=== PATIENT | male | born 1925 | race Asian ===

== ENCOUNTER 2016-06-08 22:28 | Inpatient (IN) | payer MEDICARE ==
[~2016-06-08] VITALS: Ht 167.6 cm; Wt 61.6 kg
[~2016-06-08 22:28] MED LIST: ALBU8HFA IH; ASPI-825 PO; CALC-613 PO; CHOL100034 PO; DOCU250C28 PO; FURO40TA5 PO; HEPA100I3 IV; HYDR-4173 PO; LABE200T PO; LEVO25TA9 PO; LORA0.5T83 PO; MIRT15 PO; NIFE90TA38 PO; NITR0.4T27 SL; OMEP20CA10 PO; QUET200T29 PO; SODI325T PO; ZOLP5 PO
[2016-06-08] MEDS ORDERED: IPRATROPIUM BROMIDE 0.5 MG/2.5 ML NEB SOLUTION NEB ONE (22:45)
[2016-06-08] MEDS ORDERED: OxyCODONE HCL/ACETAMINOPHEN 5-325 MG TABLET PO PRN (22:45)
[2016-06-08] MEDS ORDERED: ALBUTEROL SULFATE 2.5 MG/0.5 ML NEB SOLUTION NEB PRN (22:45)
[2016-06-08] MEDS ORDERED: ONDANSETRON HCL 4 MG/2 ML VIAL IVP PRN (22:45)
[2016-06-08] MEDS ORDERED: ALBUTEROL SULFATE 5 MG/ML 20 ML NEB SOLN [BULK] NEB ONE (22:45)
[2016-06-08] MEDS ORDERED: ACETAMINOPHEN 325 MG TABLET PO PRN (22:45)
[2016-06-08] MEDS ORDERED: ZOLPIDEM TARTRATE 5 MG TABLET PO PRN (22:45)
[2016-06-08] MEDS ORDERED: MAGNESIUM HYDROXIDE SUSPENSION 30 ML UDCUP PO PRN (22:45)
[2016-06-08] MEDS ORDERED: BISACODYL 10 MG RECTAL RECTAL SUPPOSITORY PR PRN (22:45)
[2016-06-08 22:55] LABS: HEMATOCRIT 23.5 % (41-53); HEMOGLOBIN 7.9 g/dL (13.5-17.5); MEAN CORPUSCULAR HEMOGLOBIN 32.7 pg (26.0-34.0); MEAN CORPUSCULAR HGB CONC 33.8 G/dL (31.0-37.0); MEAN CORPUSCULAR VOLUME 97 fL (80-100); PLATELET COUNT (AUTO) 290 K/uL (150-450); RED BLOOD CELL COUNT(AUTO) 2.43 MIL/uL (4.50-5.90); RED CELL DISTRIBUTION WIDTH 13.9 % (11.5-14.5); WHITE BLOOD COUNT (AUTO) 11.8 K/uL (4.5-11.0)
[2016-06-08 23:16] LABS: CREATININE 7.36 mg/dL (0.60-1.30)
[2016-06-08 23:17] LABS: BAND NEUTROPHILS % (MANUAL) 11 % (1-5); LYMPHOCYTES % (MANUAL) 10 % (22-44); RBC MORPHOLOGY COMMENT NORMAL RBC MORPH; TOTAL CELLS COUNTED 100
[2016-06-08 23:41] LABS: ALBUMIN 3.2 g/dL (3.4-5.0); BILIRUBIN,TOTAL 0.3 mg/dL (0.1-1.0); CREATINE KINASE MB 8.4 ng/mL (0-5); TOTAL PROTEIN, SERUM 7.3 g/dL (6.4-8.2)
[2016-06-08] MEDS: HEPARIN SODIUM,PORCINE 5,000 UNITS/ML VIAL SQ SCH (23:45)
[2016-06-08 23:51] LABS: INFLUENZA TYPE B NEGATIVE FOR TYPE B (NEGATIVE)
[2016-06-09] MEDS ORDERED: OSELTAMIVIR PHOSPHATE 75 MG CAPSULE PO ONE (00:15)
[2016-06-09] MEDS ORDERED: 0.9% SODIUM CHLORIDE 5 ML NEB SOLUTION NEB ONE ×3 (02:01→21:11)
[2016-06-09 02:12] LABS: APPEARANCE,URINE CLEAR (CLEAR); GLUCOSE, URINE (UA) NEGATIVE (NEGATIVE); KETONES,URINE NEGATIVE (NEGATIVE); LEUKOCYTE ESTERASE ,URINE NEGATIVE (NEGATIVE); OCCULT BLOOD,URINE TRACE (NEGATIVE); PH,URINE 5.5 (5.0-8.0); PROTEIN,URINE SEE CONFIRM (NEGATIVE)
[2016-06-09 02:15] LABS: ADD UA MICROSCOPIC YES
[2016-06-09 02:28] LABS: SULFOSALICYLIC ACID,URINE 1+ (Negative)
[2016-06-09 02:29] LABS: RBC,URINE None Seen /HPF (0-2); SQUAMOUS EPITHELIAL CELL,UR Rare /LPF (None Seen); WBC,URINE None Seen /HPF (0-5)
[2016-06-09] MEDS: ALBUTEROL SULFATE 2.5 MG/0.5 ML NEB SOLUTION NEB SCH ×4 (02:50→21:12)
[2016-06-09 05:23] LABS: BASOPHILS % (AUTO) 0.4 % (0.0-2.0); EOSINOPHILS % (AUTO) 0.1 % (1.0-6.0); HEMATOCRIT 25.2 % (41-53); HEMOGLOBIN 8.2 g/dL (13.5-17.5); LYMPHOCYTES # (AUTO) 1.4 K/uL (1.0-4.8); LYMPHOCYTES % (AUTO) 13.7 % (22.0-44.0); MEAN CORPUSCULAR HGB CONC 32.4 G/dL (31.0-37.0); MEAN CORPUSCULAR VOLUME 99 fL (80-100); MONOCYTES # (AUTO) 1.6 K/uL (0.1-1.0); MONOCYTES % (AUTO) 16.1 % (2.0-9.0); NEUTROPHILS # (AUTO) 7.1 K/uL (1.8-7.7); NEUTROPHILS % (AUTO) 69.7 % (40.0-70.0); PLATELET COUNT (AUTO) 270 K/uL (150-450); RED BLOOD CELL COUNT(AUTO) 2.55 MIL/uL (4.50-5.90); RED CELL DISTRIBUTION WIDTH 14.6 % (11.5-14.5); WHITE BLOOD COUNT (AUTO) 10.2 K/uL (4.5-11.0)
[2016-06-09 05:52] LABS: ALBUMIN 3.2 g/dL (3.4-5.0); BILIRUBIN,TOTAL 0.2 mg/dL (0.1-1.0); CREATININE 7.37 mg/dL (0.60-1.30); POTASSIUM 4.4 mmol/L (3.5-5.1); TOTAL PROTEIN, SERUM 7.1 g/dL (6.4-8.2)
[2016-06-09] MEDS ORDERED: LEVOTHYROXINE SODIUM 25 MCG TABLET PO SCH (06:30)
[2016-06-09 07:36] LABS: GLUCOSE,POINT OF CARE 84 MG/DL (70-110)
[2016-06-09] MEDS: PANTOPRAZOLE SODIUM 40 MG DR TABLET PO SCH (08:07)
[2016-06-09] MEDS: FUROSEMIDE 40 MG/4 ML VIAL IVP SCH ×2 (08:07→22:15)
[2016-06-09] MEDS: ASPIRIN 81 MG CHEWABLE TABLET PO SCH (08:07)
[2016-06-09] MEDS: HEPARIN SODIUM,PORCINE 5,000 UNITS/ML VIAL SQ SCH ×3 (09:50→23:37)
[2016-06-09] MEDS ORDERED: HEPA500017 SQ (14:36)
[2016-06-09] MEDS: CALCIUM ACETATE 667 MG CAPSULE PO SCH ×3 (16:34→17:09)
[2016-06-09] MEDS: CHOLECALCIFEROL (VIT D3) 1,000 UNITS TABLET PO SCH (16:34)
[2016-06-09 16:53] LABS: BASOPHILS % (AUTO) 0.1 % (0.0-2.0); EOSINOPHILS % (AUTO) 0.1 % (1.0-6.0); HEMATOCRIT 27.3 % (41-53); HEMOGLOBIN 8.9 g/dL (13.5-17.5); LYMPHOCYTES # (AUTO) 2.1 K/uL (1.0-4.8); LYMPHOCYTES % (AUTO) 15.1 % (22.0-44.0); MEAN CORPUSCULAR HGB CONC 32.6 G/dL (31.0-37.0); MEAN CORPUSCULAR VOLUME 98 fL (80-100); MONOCYTES # (AUTO) 1.7 K/uL (0.1-1.0); MONOCYTES % (AUTO) 12.4 % (2.0-9.0); NEUTROPHILS % (AUTO) 72.3 % (40.0-70.0); PLATELET COUNT (AUTO) 304 K/uL (150-450); RED BLOOD CELL COUNT(AUTO) 2.78 MIL/uL (4.50-5.90); RED CELL DISTRIBUTION WIDTH 14.7 % (11.5-14.5); WHITE BLOOD COUNT (AUTO) 13.8 K/uL (4.5-11.0)
[2016-06-09 17:07] LABS: CREATININE 7.38 mg/dL (0.60-1.30); POTASSIUM 4.9 mmol/L (3.5-5.1)
[2016-06-09 17:32] LABS: ALBUMIN 3.4 g/dL (3.4-5.0); BILIRUBIN,TOTAL 0.3 mg/dL (0.1-1.0); CREATINE KINASE MB 14.4 ng/mL (0-5); TOTAL PROTEIN, SERUM 7.8 g/dL (6.4-8.2)
[2016-06-09 18:49] LABS: ABG A-A DIFF O2 128.4 mmHg (10-20.0); ABG HCO3 13.4 mmol/L (22.0-26.0); ABG OXYHEMOGLOBIN 83.9 % (94.0-100.0); ABG PCO2 34 mmHg (35-45); TEMPERATURE, FAHRENHEIT, BG 98.3 FAHREN (96.0-98.6)
[2016-06-09 18:50] LABS: ABG PH 7.204 (7.35-7.450); ALLEN TEST, BLOOD GAS Positive
[2016-06-09] MEDS ORDERED: RAPID SEQUENCE KIT [RSI] 1 EACH KIT ONE ×2 (18:55)
[2016-06-09] MEDS ORDERED: SUCCINYLCHOLINE CHLORIDE 20 MG/ML 10 ML VIAL ONE (18:56)
[2016-06-09] MEDS ORDERED: LORazepam 2 MG/ML VIAL IVP ONE ×2 (19:00→21:30)
[2016-06-09] MEDS ORDERED: ONDANSETRON HCL 4 MG/2 ML VIAL IVP ONE (19:00)
[2016-06-09] MEDS ORDERED: NITROGLYCERIN 2% (1 GM=INCH) PACKET TP ONE (19:00)
[2016-06-09] MEDS ORDERED: AZITHROMYCIN 500 MG/NS 250 ML IV ONE (19:30)
[2016-06-09] MEDS ORDERED: CefTRIAXone 1 GM/DEXTROSE 50 ML IV ONE (19:30)
[2016-06-09] MEDS ORDERED: BUMETANIDE 0.25 MG/ML 10 ML VIAL IVP ONE (19:30)
[2016-06-09 21:02] LABS: ABG A-A DIFF O2 147.5 mmHg (10-20.0); ABG BASE EXCESS -15.1 mmol/L (-2.0-3.0); ABG HCO3 13.6 mmol/L (22.0-26.0); ABG OXYHEMOGLOBIN 92.9 % (94.0-100.0); ABG PCO2 23 mmHg (35-45); ABG PH 7.312 (7.35-7.450); TEMPERATURE, FAHRENHEIT, BG 98.3 FAHREN (96.0-98.6)
[2016-06-09 21:03] LABS: ALLEN TEST, BLOOD GAS Positive; IPAP, BG 10 cm H2O
[2016-06-09 22:06] VITALS: BP 135/97
[2016-06-10] VITALS (14 sets, daily range): BP systolic 107–154; BP diastolic 55–90
[2016-06-10] MEDS ORDERED: 0.9% SODIUM CHLORIDE 5 ML NEB SOLUTION NEB ONE ×3 (01:34→19:28)
[2016-06-10] MEDS: ALBUTEROL SULFATE 2.5 MG/0.5 ML NEB SOLUTION NEB SCH ×4 (01:38→19:35)
[2016-06-10] MEDS ORDERED: PNEUMOCOCCAL VACCINE POLYVALENT 0.5 ML VIAL [PPSV23] IM ONE (05:45)
[2016-06-10] MEDS ORDERED: -PHARMACY VACCINE NOTE- MISC ONE ×2 (05:45)
[2016-06-10] MEDS: LEVOTHYROXINE SODIUM 50 MCG TABLET PO SCH (06:30)
[2016-06-10 07:02] LABS: BASOPHILS # (AUTO) 0.01 K/uL (0.00-0.20); BASOPHILS % (AUTO) 0.1 % (0.0-2.0); EOSINOPHILS % (AUTO) 0.02 % (1.0-6.0); HEMATOCRIT 24.7 % (41-53); HEMOGLOBIN 8.1 g/dL (13.5-17.5); LYMPHOCYTES # (AUTO) 1.7 K/uL (1.0-4.8); LYMPHOCYTES % (AUTO) 14.6 % (22.0-44.0); MEAN CORPUSCULAR HEMOGLOBIN 32.2 pg (26.0-34.0); MEAN CORPUSCULAR HGB CONC 32.8 G/dL (31.0-37.0); MEAN CORPUSCULAR VOLUME 98 fL (80-100); MONOCYTES # (AUTO) 1.3 K/uL (0.1-1.0); MONOCYTES % (AUTO) 11.4 % (2.0-9.0); NEUTROPHILS # (AUTO) 8.5 K/uL (1.8-7.7); PLATELET COUNT (AUTO) 263 K/uL (150-450); RED BLOOD CELL COUNT(AUTO) 2.52 MIL/uL (4.50-5.90); RED CELL DISTRIBUTION WIDTH 14.6 % (11.5-14.5); WHITE BLOOD COUNT (AUTO) 11.5 K/uL (4.5-11.0)
[2016-06-10 07:25] LABS: ALBUMIN 3.1 g/dL (3.4-5.0); BILIRUBIN,TOTAL 0.3 mg/dL (0.1-1.0); CALCIUM, TOTAL 7.7 mg/dL (8.8-10.5); CREATININE 8.41 mg/dL (0.60-1.30); MAGNESIUM 2.3 mg/dL (1.80-2.40); PHOSPHORUS 8.6 mg/dL (2.5-4.9); POTASSIUM 5.1 mmol/L (3.5-5.1); TOTAL PROTEIN, SERUM 7.1 g/dL (6.4-8.2)
[2016-06-10] MEDS: EPOETIN ALFA 10,000 UNITS/ML VIAL SQ SCH (07:59)
[2016-06-10] MEDS: CALCIUM ACETATE 667 MG CAPSULE PO SCH ×3 (08:00→18:00)
[2016-06-10] MEDS: HEPARIN SODIUM,PORCINE 5,000 UNITS/ML VIAL SQ SCH ×2 (08:01→21:22)
[2016-06-10] MEDS: FUROSEMIDE 40 MG/4 ML VIAL IVP SCH ×2 (08:02→21:23)
[2016-06-10] MEDS: CHOLECALCIFEROL (VIT D3) 1,000 UNITS TABLET PO SCH (09:00)
[2016-06-10] MEDS: PANTOPRAZOLE SODIUM 40 MG DR TABLET PO SCH (09:00)
[2016-06-10] MEDS: ASPIRIN 81 MG CHEWABLE TABLET PO SCH (09:00)
[2016-06-10 10:57] LABS: INR 1.3 (0.9-1.1); PROTHROMBIN TIME 13.2 SEC (9.4-11.6)
[2016-06-10] MEDS ORDERED: AMIODARONE HCL 150 MG in DEXTROSE 5%-WATER 97 ML IV ONE (11:00)
[2016-06-10] MEDS ORDERED: AMIODARONE HCL 360 MG in DEXTROSE 5%-WATER 242.8 ML IV ONE (11:00)
[2016-06-10] MEDS: OSELTAMIVIR PHOSPHATE 75 MG CAPSULE PO SCH ×2 (11:56→21:22)
[2016-06-10] MEDS ORDERED: HEPARIN SODIUM,PORCINE 1,000 UNITS/ML VIAL IVP ONE (12:00)
[2016-06-10] MEDS ORDERED: 0.9% SODIUM CHLORIDE 10 ML SYRINGE IVP PRN (12:00)
[2016-06-10] MEDS ORDERED: MANNITOL 25%-12.5 GM/50 ML VIAL IVP ONE (12:00)
[2016-06-10] MEDS ORDERED: MIDAZOLAM HCL 2 MG/2 ML VIAL ONE (13:49)
[2016-06-10] MEDS ORDERED: FentaNYL CITRATE-PF 100 MCG/2 ML VIAL ONE (13:49)
[2016-06-10] MEDS ORDERED: HEPARIN SODIUM 1000 UNITS/NS 500 ML ONE (13:50)
[2016-06-10] MEDS ORDERED: HEPARIN SODIUM,PORCINE 1,000 UNITS/ML 10 ML VIAL ONE (13:50)
[2016-06-10] MEDS ORDERED: LIDOCAINE HCL 1%/EPI 1:200,000/PF 10 ML VIAL ONE (13:50)
[2016-06-10] MEDS ORDERED: MIDAZOLAM HCL 2 MG/2 ML VIAL IVP ONE (14:45)
[2016-06-10] MEDS ORDERED: FentaNYL CITRATE-PF 100 MCG/2 ML VIAL IVP ONE (14:50)
[2016-06-10] MEDS ORDERED: AMIODARONE HCL 540 MG in DEXTROSE 5%-WATER 239.2 ML IV ONE (17:00)
[2016-06-10] MEDS ORDERED: SODIUM CHLORIDE 0.9% 250 ML IV ONE (19:06)
[2016-06-10] MEDS ORDERED: SODIUM CHLORIDE 0.9% 100 ML ONE (21:15)
[2016-06-10] MEDS: AZITHROMYCIN 500 MG/NS 250 ML IV SCH (21:23)
[2016-06-11 00:06] VITALS: BP 124/98
[2016-06-11] MEDS ORDERED: 0.9% SODIUM CHLORIDE 5 ML NEB SOLUTION NEB ONE ×4 (02:18→19:38)
[2016-06-11] MEDS: ALBUTEROL SULFATE 2.5 MG/0.5 ML NEB SOLUTION NEB SCH ×4 (02:22→19:54)
[2016-06-11 04:34] VITALS: BP 115/77
[2016-06-11] MEDS: LEVOTHYROXINE SODIUM 50 MCG TABLET PO SCH (06:35)
[2016-06-11 07:37] LABS: BASOPHILS % (AUTO) 0.4 % (0.0-2.0); EOSINOPHILS % (AUTO) 0.4 % (1.0-6.0); HEMATOCRIT 29.1 % (41-53); HEMOGLOBIN 9.8 g/dL (13.5-17.5); LYMPHOCYTES # (AUTO) 1.8 K/uL (1.0-4.8); LYMPHOCYTES % (AUTO) 18.3 % (22.0-44.0); MEAN CORPUSCULAR HEMOGLOBIN 32.3 pg (26.0-34.0); MEAN CORPUSCULAR HGB CONC 33.5 G/dL (31.0-37.0); MEAN CORPUSCULAR VOLUME 96 fL (80-100); MONOCYTES # (AUTO) 1.6 K/uL (0.1-1.0); MONOCYTES % (AUTO) 16.4 % (2.0-9.0); NEUTROPHILS # (AUTO) 6.5 K/uL (1.8-7.7); NEUTROPHILS % (AUTO) 64.5 % (40.0-70.0); PLATELET COUNT (AUTO) 205 K/uL (150-450); RED BLOOD CELL COUNT(AUTO) 3.02 MIL/uL (4.50-5.90); RED CELL DISTRIBUTION WIDTH 14.1 % (11.5-14.5)
[2016-06-11 07:42] VITALS: BP 141/69
[2016-06-11 08:03] LABS: CALCIUM, TOTAL 7.7 mg/dL (8.8-10.5); CREATININE 6.76 mg/dL (0.60-1.30); MAGNESIUM 1.9 mg/dL (1.80-2.40); PHOSPHORUS 6.3 mg/dL (2.5-4.9); POTASSIUM 4.2 mmol/L (3.5-5.1); TOTAL PROTEIN, SERUM 6.8 g/dL (6.4-8.2)
[2016-06-11] MEDS: OSELTAMIVIR PHOSPHATE 75 MG CAPSULE PO SCH ×2 (08:40→20:35)
[2016-06-11] MEDS: FUROSEMIDE 40 MG/4 ML VIAL IVP SCH ×2 (08:40→20:35)
[2016-06-11] MEDS: PANTOPRAZOLE SODIUM 40 MG DR TABLET PO SCH (08:40)
[2016-06-11] MEDS: HEPARIN SODIUM,PORCINE 5,000 UNITS/ML VIAL SQ SCH ×2 (08:40→20:35)
[2016-06-11] MEDS: ASPIRIN 81 MG CHEWABLE TABLET PO SCH (08:40)
[2016-06-11] MEDS: CALCIUM ACETATE 667 MG CAPSULE PO SCH ×3 (08:40→18:10)
[2016-06-11] MEDS: CHOLECALCIFEROL (VIT D3) 1,000 UNITS TABLET PO SCH (08:41)
[2016-06-11] MEDS ORDERED: AMIODARONE HCL 750 MG in DEXTROSE 5%-WATER 485 ML IV SCH (11:00)
[2016-06-11 11:10] VITALS: BP 120/82
[2016-06-11] MEDS ORDERED: SODIUM CHLORIDE 0.9% 2,000 ML IV ONE (12:06)
[2016-06-11 15:36] VITALS: BP 139/55
[2016-06-11] MEDS ORDERED: HEPARIN SODIUM,PORCINE 1,000 UNITS/ML VIAL IVP ONE ×2 (16:48→16:50)
[2016-06-11] MEDS: VITAMIN B COMP/VIT C/FOLIC ACID CAPSULE PO SCH (17:01)
[2016-06-11 19:52] VITALS: BP 128/76
[2016-06-11] MEDS: AMIODARONE HCL 200 MG TABLET PO SCH (20:35)
[2016-06-11] MEDS: AZITHROMYCIN 500 MG/NS 250 ML IV SCH (21:41)
[2016-06-12 00:09] VITALS: BP 136/89
[2016-06-12] MEDS ORDERED: 0.9% SODIUM CHLORIDE 5 ML NEB SOLUTION NEB ONE ×4 (02:13→20:26)
[2016-06-12] MEDS: ALBUTEROL SULFATE 2.5 MG/0.5 ML NEB SOLUTION NEB SCH ×4 (02:18→20:32)
[2016-06-12 04:23] VITALS: BP 141/68
[2016-06-12 06:42] LABS: BASOPHILS # (AUTO) 0.02 K/uL (0.00-0.20); BASOPHILS % (AUTO) 0.1 % (0.0-2.0); EOSINOPHILS # (AUTO) 0.21 K/uL (0.00-0.70); EOSINOPHILS % (AUTO) 1.92 % (1.0-6.0); HEMATOCRIT 34.8 % (41-53); HEMOGLOBIN 11.6 g/dL (13.5-17.5); LYMPHOCYTES # (AUTO) 2.2 K/uL (1.0-4.8); LYMPHOCYTES % (AUTO) 20.1 % (22.0-44.0); MEAN CORPUSCULAR HEMOGLOBIN 32.3 pg (26.0-34.0); MEAN CORPUSCULAR HGB CONC 33.2 G/dL (31.0-37.0); MEAN CORPUSCULAR VOLUME 97 fL (80-100); MONOCYTES # (AUTO) 1.4 K/uL (0.1-1.0); MONOCYTES % (AUTO) 12.7 % (2.0-9.0); NEUTROPHILS # (AUTO) 7.2 K/uL (1.8-7.7); NEUTROPHILS % (AUTO) 65.1 % (40.0-70.0); PLATELET COUNT (AUTO) 172 K/uL (150-450); RED BLOOD CELL COUNT(AUTO) 3.59 MIL/uL (4.50-5.90); RED CELL DISTRIBUTION WIDTH 14.9 % (11.5-14.5)
[2016-06-12] MEDS: LEVOTHYROXINE SODIUM 50 MCG TABLET PO SCH (06:48)
[2016-06-12 07:21] LABS: BILIRUBIN,TOTAL 0.8 mg/dL (0.1-1.0); CALCIUM, TOTAL 8.6 mg/dL (8.8-10.5); CREATININE 5.42 mg/dL (0.60-1.30); POTASSIUM 4.1 mmol/L (3.5-5.1)
[2016-06-12 07:49] VITALS: BP 132/67
[2016-06-12] MEDS: CALCIUM ACETATE 667 MG CAPSULE PO SCH ×3 (10:20→18:00)
[2016-06-12] MEDS: HEPARIN SODIUM,PORCINE 5,000 UNITS/ML VIAL SQ SCH ×2 (10:21→20:07)
[2016-06-12] MEDS: FUROSEMIDE 40 MG/4 ML VIAL IVP SCH ×2 (10:21→20:07)
[2016-06-12] MEDS: EPOETIN ALFA 10,000 UNITS/ML VIAL SQ SCH (10:21)
[2016-06-12] MEDS: PANTOPRAZOLE SODIUM 40 MG DR TABLET PO SCH (10:21)
[2016-06-12] MEDS: OSELTAMIVIR PHOSPHATE 75 MG CAPSULE PO SCH ×2 (10:21→20:07)
[2016-06-12] MEDS: CHOLECALCIFEROL (VIT D3) 1,000 UNITS TABLET PO SCH (10:22)
[2016-06-12] MEDS: ASPIRIN 81 MG CHEWABLE TABLET PO SCH (10:22)
[2016-06-12] MEDS: VITAMIN B COMP/VIT C/FOLIC ACID CAPSULE PO SCH (10:22)
[2016-06-12] MEDS: AMIODARONE HCL 200 MG TABLET PO SCH ×2 (10:22→20:07)
[2016-06-12 11:10] VITALS: BP 116/65
[2016-06-12 16:06] VITALS: BP 131/98
[2016-06-12 19:59] VITALS: BP 134/71
[2016-06-12] MEDS: AZITHROMYCIN 500 MG/NS 250 ML IV SCH (20:17)
[2016-06-13] VITALS (7 sets, daily range): BP systolic 106–148; BP diastolic 70–80
[2016-06-13] MEDS ORDERED: 0.9% SODIUM CHLORIDE 5 ML NEB SOLUTION NEB ONE ×4 (02:25→19:29)
[2016-06-13] MEDS: ALBUTEROL SULFATE 2.5 MG/0.5 ML NEB SOLUTION NEB SCH ×4 (02:33→20:02)
[2016-06-13] MEDS: LEVOTHYROXINE SODIUM 50 MCG TABLET PO SCH (06:08)
[2016-06-13 08:07] LABS: CREATININE 7.03 mg/dL (0.60-1.30); MAGNESIUM 1.9 mg/dL (1.80-2.40); PHOSPHORUS 4.7 mg/dL (2.5-4.9)
[2016-06-13 08:11] LABS: ALBUMIN 3.2 g/dL (3.4-5.0); BILIRUBIN,TOTAL 0.8 mg/dL (0.1-1.0); CALCIUM, TOTAL 8.8 mg/dL (8.8-10.5); POTASSIUM 3.8 mmol/L (3.5-5.1); TOTAL PROTEIN, SERUM 7.6 g/dL (6.4-8.2)
[2016-06-13] MEDS: HEPARIN SODIUM,PORCINE 5,000 UNITS/ML VIAL SQ SCH ×2 (08:35→20:32)
[2016-06-13] MEDS: AMIODARONE HCL 200 MG TABLET PO SCH ×2 (08:36→20:33)
[2016-06-13] MEDS: CALCIUM ACETATE 667 MG CAPSULE PO SCH ×3 (08:36→18:16)
[2016-06-13] MEDS: OSELTAMIVIR PHOSPHATE 75 MG CAPSULE PO SCH ×2 (08:36→20:33)
[2016-06-13] MEDS: FUROSEMIDE 40 MG/4 ML VIAL IVP SCH ×2 (08:36→20:32)
[2016-06-13] MEDS: ASPIRIN 81 MG CHEWABLE TABLET PO SCH (08:36)
[2016-06-13] MEDS: PANTOPRAZOLE SODIUM 40 MG DR TABLET PO SCH (08:36)
[2016-06-13] MEDS: CHOLECALCIFEROL (VIT D3) 1,000 UNITS TABLET PO SCH (08:36)
[2016-06-13] MEDS: VITAMIN B COMP/VIT C/FOLIC ACID CAPSULE PO SCH (08:36)
[2016-06-13 09:47] LABS: BASOPHILS # (AUTO) 0.06 K/uL (0.00-0.20); BASOPHILS % (AUTO) 0.4 % (0.0-2.0); EOSINOPHILS # (AUTO) 0.32 K/uL (0.00-0.70); EOSINOPHILS % (AUTO) 2.18 % (1.0-6.0); HEMATOCRIT 32.1 % (41-53); HEMOGLOBIN 10.9 g/dL (13.5-17.5); LYMPHOCYTES # (AUTO) 2.5 K/uL (1.0-4.8); MEAN CORPUSCULAR HEMOGLOBIN 32.5 pg (26.0-34.0); MEAN CORPUSCULAR VOLUME 95 fL (80-100); MONOCYTES % (AUTO) 13.4 % (2.0-9.0); NEUTROPHILS # (AUTO) 9.9 K/uL (1.8-7.7); PLATELET COUNT (AUTO) 177 K/uL (150-450); RED BLOOD CELL COUNT(AUTO) 3.36 MIL/uL (4.50-5.90); RED CELL DISTRIBUTION WIDTH 14.6 % (11.5-14.5); WHITE BLOOD COUNT (AUTO) 14.8 K/uL (4.5-11.0)
[2016-06-13 10:00] LABS: RBC MORPHOLOGY COMMENT ABNORMAL RBC MORPH
[2016-06-13] MEDS: GuaiFENesin/D-METHORPHAN [SUGAR-FREE] 200-20MG/10 ML SYRUP UDCUP PO PRN (12:12)
[2016-06-13] MEDS ORDERED: SODIUM CHLORIDE 0.9% 2,000 ML IV ONE (13:17)
[2016-06-13] MEDS ORDERED: HEPARIN SODIUM,PORCINE 1,000 UNITS/ML VIAL IVP ONE ×3 (13:30→19:14)
[2016-06-13] MEDS ORDERED: MANNITOL 25%-12.5 GM/50 ML VIAL IVP PRN (13:30)
[2016-06-13] MEDS ORDERED: ALBUMIN HUMAN 25%-12.5GM/50ML IV BOTTLE IV PRN (13:30)
[2016-06-13] MEDS: AZITHROMYCIN 500 MG/NS 250 ML IV SCH (20:32)
[2016-06-14] MEDS ORDERED: 0.9% SODIUM CHLORIDE 5 ML NEB SOLUTION NEB ONE ×4 (02:17→19:45)
[2016-06-14] MEDS: ALBUTEROL SULFATE 2.5 MG/0.5 ML NEB SOLUTION NEB SCH ×4 (02:29→20:10)
[2016-06-14 04:45] VITALS: BP 141/80
[2016-06-14] MEDS: LEVOTHYROXINE SODIUM 50 MCG TABLET PO SCH (06:03)
[2016-06-14 07:32] VITALS: BP 118/74
[2016-06-14] MEDS: CALCIUM ACETATE 667 MG CAPSULE PO SCH ×4 (08:00→18:04)
[2016-06-14] MEDS: HEPARIN SODIUM,PORCINE 5,000 UNITS/ML VIAL SQ SCH ×3 (09:00→21:37)
[2016-06-14] MEDS: FUROSEMIDE 40 MG/4 ML VIAL IVP SCH ×2 (09:24→21:38)
[2016-06-14] MEDS: AMIODARONE HCL 200 MG TABLET PO SCH ×2 (09:25→21:37)
[2016-06-14] MEDS: VITAMIN B COMP/VIT C/FOLIC ACID CAPSULE PO SCH (09:25)
[2016-06-14] MEDS: OSELTAMIVIR PHOSPHATE 75 MG CAPSULE PO SCH ×2 (09:25→21:37)
[2016-06-14] MEDS: CHOLECALCIFEROL (VIT D3) 1,000 UNITS TABLET PO SCH (09:25)
[2016-06-14] MEDS: ASPIRIN 81 MG CHEWABLE TABLET PO SCH (09:25)
[2016-06-14] MEDS: GuaiFENesin/D-METHORPHAN [SUGAR-FREE] 200-20MG/10 ML SYRUP UDCUP PO PRN (09:25)
[2016-06-14] MEDS: EPOETIN ALFA 10,000 UNITS/ML VIAL SQ SCH (09:27)
[2016-06-14 11:12] VITALS: BP 144/89
[2016-06-14] MEDS ORDERED: SODIUM CHLORIDE 0.9% 10 ML ONE (11:36)
[2016-06-14 15:17] VITALS: BP 155/93
[2016-06-14] MEDS ORDERED: QUET200T PO (18:54)
[2016-06-14] MEDS ORDERED: MIRT15 PO (18:54)
[2016-06-14 20:30] VITALS: BP 130/75
[2016-06-14] MEDS: AZITHROMYCIN 500 MG/NS 250 ML IV SCH (21:38)
[2016-06-15] VITALS (8 sets, daily range): BP systolic 99–138; BP diastolic 57–88
[2016-06-15] MEDS ORDERED: 0.9% SODIUM CHLORIDE 5 ML NEB SOLUTION NEB ONE ×4 (02:41→19:34)
[2016-06-15] MEDS: ALBUTEROL SULFATE 2.5 MG/0.5 ML NEB SOLUTION NEB SCH ×4 (03:11→19:50)
[2016-06-15] MEDS: LEVOTHYROXINE SODIUM 50 MCG TABLET PO SCH (06:46)
[2016-06-15] MEDS ORDERED: SODIUM CHLORIDE 0.9% 1,000 ML IV ONE (08:15)
[2016-06-15] MEDS: HEPARIN SODIUM,PORCINE 5,000 UNITS/ML VIAL SQ SCH ×2 (09:40→20:55)
[2016-06-15] MEDS: CALCIUM ACETATE 667 MG CAPSULE PO SCH ×3 (09:40→18:15)
[2016-06-15] MEDS: FUROSEMIDE 40 MG/4 ML VIAL IVP SCH ×2 (11:13→19:59)
[2016-06-15] MEDS: AMIODARONE HCL 200 MG TABLET PO SCH ×2 (12:10→20:55)
[2016-06-15] MEDS: ASPIRIN 81 MG CHEWABLE TABLET PO SCH (12:10)
[2016-06-15] MEDS: CHOLECALCIFEROL (VIT D3) 1,000 UNITS TABLET PO SCH (12:10)
[2016-06-15] MEDS: OSELTAMIVIR PHOSPHATE 75 MG CAPSULE PO SCH (12:10)
[2016-06-15] MEDS: ATORVASTATIN CALCIUM 20 MG TABLET PO SCH (12:10)
[2016-06-15] MEDS: VITAMIN B COMP/VIT C/FOLIC ACID CAPSULE PO SCH (12:10)
[2016-06-15] MEDS: ISOSORB DINIT/HYDRALAZINE HCL 20-37.5 MG TABLET PO SCH ×2 (12:11→20:55)
[2016-06-15] MEDS ORDERED: SODIUM CHLORIDE 0.9% 250 ML IV ONE (19:50)
[2016-06-15] MEDS: AZITHROMYCIN 500 MG/NS 250 ML IV SCH (19:59)
[2016-06-16] MEDS ORDERED: HEPARIN SODIUM,PORCINE 1,000 UNITS/ML 10 ML VIAL IVP ONE (00:05)
[2016-06-16] MEDS ORDERED: PROPOFOL 1% 20 ML VIAL IVP ONE (00:05)
[2016-06-16] MEDS ORDERED: LIDOCAINE HCL/PF 2% 5 ML VIAL IM ONE (00:05)
[2016-06-16] MEDS ORDERED: MIDAZOLAM HCL 2 MG/2 ML VIAL IVP ONE (00:05)
[2016-06-16] MEDS ORDERED: CefoTEtan DISODIUM 1 GM/VIAL IVP ONE (00:05)
[2016-06-16] MEDS ORDERED: KETAMINE HCL 50 MG/ML 10 ML VIAL IVP ONE (00:05)
[2016-06-16] MEDS ORDERED: FentaNYL CITRATE-PF 100 MCG/2 ML VIAL IVP ONE (00:05)
[2016-06-16] MEDS ORDERED: 0.9% SODIUM CHLORIDE 5 ML NEB SOLUTION NEB ONE ×4 (02:15→19:50)
[2016-06-16] MEDS: ALBUTEROL SULFATE 2.5 MG/0.5 ML NEB SOLUTION NEB SCH ×4 (02:25→19:58)
[2016-06-16 04:00] VITALS: BP 112/63
[2016-06-16] MEDS: LEVOTHYROXINE SODIUM 50 MCG TABLET PO SCH (05:14)
[2016-06-16 06:43] LABS: INR 1.2 (0.9-1.1); PROTHROMBIN TIME 12.7 SEC (9.4-11.6)
[2016-06-16 06:54] LABS: ALBUMIN 3.2 g/dL (3.4-5.0); BILIRUBIN,TOTAL 0.7 mg/dL (0.1-1.0); CALCIUM, TOTAL 8.8 mg/dL (8.8-10.5); CREATININE 6.82 mg/dL (0.60-1.30); MAGNESIUM 2.1 mg/dL (1.80-2.40); POTASSIUM 4.1 mmol/L (3.5-5.1); TOTAL PROTEIN, SERUM 7.5 g/dL (6.4-8.2)
[2016-06-16 06:56] LABS: BASOPHILS # (AUTO) 0.08 K/uL (0.00-0.20); BASOPHILS % (AUTO) 0.5 % (0.0-2.0); EOSINOPHILS # (AUTO) 0.46 K/uL (0.00-0.70); EOSINOPHILS % (AUTO) 2.88 % (1.0-6.0); HEMATOCRIT 34.3 % (41-53); HEMOGLOBIN 11.4 g/dL (13.5-17.5); LYMPHOCYTES # (AUTO) 2.8 K/uL (1.0-4.8); LYMPHOCYTES % (AUTO) 17.5 % (22.0-44.0); MEAN CORPUSCULAR HEMOGLOBIN 32.8 pg (26.0-34.0); MEAN CORPUSCULAR HGB CONC 33.3 G/dL (31.0-37.0); MEAN CORPUSCULAR VOLUME 98 fL (80-100); MONOCYTES # (AUTO) 2.2 K/uL (0.1-1.0); MONOCYTES % (AUTO) 13.6 % (2.0-9.0); NEUTROPHILS # (AUTO) 10.4 K/uL (1.8-7.7); NEUTROPHILS % (AUTO) 65.5 % (40.0-70.0); RED BLOOD CELL COUNT(AUTO) 3.49 MIL/uL (4.50-5.90); RED CELL DISTRIBUTION WIDTH 14.9 % (11.5-14.5)
[2016-06-16 07:57] LABS: PLATELET COUNT (AUTO) 98 K/uL (150-450)
[2016-06-16 07:58] VITALS: BP 124/75
[2016-06-16] MEDS: CALCIUM ACETATE 667 MG CAPSULE PO SCH ×3 (08:00→18:09)
[2016-06-16] MEDS: ASPIRIN 81 MG CHEWABLE TABLET PO SCH (08:08)
[2016-06-16] MEDS: ISOSORB DINIT/HYDRALAZINE HCL 20-37.5 MG TABLET PO SCH ×2 (08:09→21:00)
[2016-06-16] MEDS: HEPARIN SODIUM,PORCINE 5,000 UNITS/ML VIAL SQ SCH (08:09)
[2016-06-16] MEDS: CHOLECALCIFEROL (VIT D3) 1,000 UNITS TABLET PO SCH (09:00)
[2016-06-16] MEDS: VITAMIN B COMP/VIT C/FOLIC ACID CAPSULE PO SCH (09:00)
[2016-06-16] MEDS ORDERED: SODIUM CHLORIDE 0.9% 10 ML ONE (09:03)
[2016-06-16] MEDS ORDERED: LIDOCAINE HCL/PF 1% 30 ML VIAL ONE (09:04)
[2016-06-16] MEDS ORDERED: SODIUM CHLORIDE 0.9% 1,000 ML IV ONE (09:11)
[2016-06-16] MEDS: NITROGLYCERIN 2% (1 GM=INCH) PACKET TP SCH ×2 (09:30→16:00)
[2016-06-16] MEDS: LIDOCAINE HCL/PF 1% 30 ML VIAL ONE ×2 (09:56→10:24)
[2016-06-16] MEDS ORDERED: HYDROCODONE/ACETAMINOPHEN 5-325 MG TABLET PO PRN (11:30)
[2016-06-16 12:24] VITALS: BP 129/74
[2016-06-16] MEDS: ATORVASTATIN CALCIUM 20 MG TABLET PO SCH (12:31)
[2016-06-16] MEDS: AMIODARONE HCL 200 MG TABLET PO SCH ×2 (12:31→21:39)
[2016-06-16 13:13] VITALS: BP 106/61
[2016-06-16] MEDS: FUROSEMIDE 40 MG/4 ML VIAL IVP SCH ×2 (13:13→21:00)
[2016-06-16 16:10] VITALS: BP 105/67
[2016-06-16] MEDS: AZITHROMYCIN 500 MG/NS 250 ML IV SCH (19:53)
[2016-06-16 21:00] VITALS: BP 93/59
[2016-06-17] VITALS: BP 115/72
[2016-06-17] MEDS ORDERED: 0.9% SODIUM CHLORIDE 5 ML NEB SOLUTION NEB ONE ×4 (01:25→18:55)
[2016-06-17] MEDS: ALBUTEROL SULFATE 2.5 MG/0.5 ML NEB SOLUTION NEB SCH ×4 (01:32→19:43)
[2016-06-17 05:14] VITALS: BP 115/67
[2016-06-17 06:26] LABS: BASOPHILS % (AUTO) 0.3 % (0.0-2.0); EOSINOPHILS % (AUTO) 2.8 % (1.0-6.0); HEMATOCRIT 31.6 % (41-53); HEMOGLOBIN 10.3 g/dL (13.5-17.5); LYMPHOCYTES # (AUTO) 2.3 K/uL (1.0-4.8); LYMPHOCYTES % (AUTO) 15.3 % (22.0-44.0); MEAN CORPUSCULAR HEMOGLOBIN 32.9 pg (26.0-34.0); MEAN CORPUSCULAR HGB CONC 32.7 G/dL (31.0-37.0); MEAN CORPUSCULAR VOLUME 101 fL (80-100); MONOCYTES # (AUTO) 2.2 K/uL (0.1-1.0); MONOCYTES % (AUTO) 14.9 % (2.0-9.0); NEUTROPHILS # (AUTO) 9.9 K/uL (1.8-7.7); NEUTROPHILS % (AUTO) 66.7 % (40.0-70.0); PLATELET COUNT (AUTO) 98 K/uL (150-450); RED BLOOD CELL COUNT(AUTO) 3.14 MIL/uL (4.50-5.90); WHITE BLOOD COUNT (AUTO) 14.8 K/uL (4.5-11.0)
[2016-06-17] MEDS: LEVOTHYROXINE SODIUM 50 MCG TABLET PO SCH (06:31)
[2016-06-17 07:22] VITALS: BP 111/67
[2016-06-17 07:24] LABS: ALBUMIN 2.8 g/dL (3.4-5.0); BILIRUBIN,TOTAL 0.6 mg/dL (0.1-1.0); CALCIUM, TOTAL 8.1 mg/dL (8.8-10.5); CREATININE 8.4 mg/dL (0.60-1.30); MAGNESIUM 2.3 mg/dL (1.80-2.40); POTASSIUM 4.6 mmol/L (3.5-5.1); TOTAL PROTEIN, SERUM 6.8 g/dL (6.4-8.2)
[2016-06-17] MEDS: NITROGLYCERIN 2% (1 GM=INCH) PACKET TP SCH ×3 (08:00→15:52)
[2016-06-17] MEDS: EPOETIN ALFA 10,000 UNITS/ML VIAL SQ SCH (08:22)
[2016-06-17] MEDS: AMIODARONE HCL 200 MG TABLET PO SCH (08:32)
[2016-06-17] MEDS: CHOLECALCIFEROL (VIT D3) 1,000 UNITS TABLET PO SCH (08:32)
[2016-06-17] MEDS: ATORVASTATIN CALCIUM 20 MG TABLET PO SCH (08:32)
[2016-06-17] MEDS: VITAMIN B COMP/VIT C/FOLIC ACID CAPSULE PO SCH (08:32)
[2016-06-17] MEDS: ASPIRIN 81 MG CHEWABLE TABLET PO SCH (08:32)
[2016-06-17] MEDS: CALCIUM ACETATE 667 MG CAPSULE PO SCH ×3 (08:33→18:10)
[2016-06-17] MEDS: ISOSORB DINIT/HYDRALAZINE HCL 20-37.5 MG TABLET PO SCH (08:33)
[2016-06-17] MEDS: FUROSEMIDE 40 MG/4 ML VIAL IVP SCH (08:33)
[2016-06-17] MEDS ORDERED: ISOS1TAB2 PO (10:38)
[2016-06-17] MEDS ORDERED: LEVO50 PO (10:38)
[2016-06-17] MEDS ORDERED: AUD NEB ×2 (10:38)
[2016-06-17] MEDS ORDERED: ATOR20TA65 PO (10:38)
[2016-06-17] MEDS ORDERED: PHOSLOC PO (10:38)
[2016-06-17] MEDS ORDERED: VITAD1000 PO (10:38)
[2016-06-17] MEDS ORDERED: AMIO200T2 PO (10:38)
[2016-06-17 11:24] LABS: RBC MORPHOLOGY COMMENT ABNORMAL RBC MORPH
[2016-06-17 11:51] VITALS: BP 99/57
[2016-06-17] MEDS ORDERED: ALBUMIN HUMAN 25%-12.5GM/50ML IV BOTTLE IV PRN (15:15)
[2016-06-17] MEDS ORDERED: HEPARIN SODIUM,PORCINE 1,000 UNITS/ML VIAL IVP ONE ×3 (15:15→16:51)
[2016-06-17] MEDS ORDERED: MANNITOL 25%-12.5 GM/50 ML VIAL IVP PRN (15:15)
[2016-06-17 20:06] VITALS: BP 120/70
== END 2016-06-17 20:25 | DRG 264 ==
LOC: EMS 22:31 → 5S 06-09 16:43
PROVIDERS: ADMIT Hospitalist; ATTEND Hospitalist
PROC: 5A09357 Assistance with Respiratory Ventilation, Less than 24 Consecutive Hours, Continuous Positive Airway Pressure (ICD-10-PCS; 2016-06-09)
PROC: 05HM33Z Insertion of Infusion Device into Right Internal Jugular Vein, Percutaneous Approach (ICD-10-PCS; principal; 2016-06-10)
PROC: B5131ZA Fluoroscopy of Right Jugular Veins using Low Osmolar Contrast, Guidance (ICD-10-PCS; 2016-06-10)
PROC: B543ZZA Ultrasonography of Right Jugular Veins, Guidance (ICD-10-PCS; 2016-06-10)
PROC: 5A1D60Z (ICD-10-PCS; 2016-06-10)
PROC: 30233N1 Transfusion of Nonautologous Red Blood Cells into Peripheral Vein, Percutaneous Approach (ICD-10-PCS; 2016-06-10)
PROC: 03180ZD Bypass Left Brachial Artery to Upper Arm Vein, Open Approach (ICD-10-PCS; 2016-06-16)
DX: I13.2 Hypertensive heart and chronic kidney disease with heart failure and with stage 5 chronic kidney disease, or end stage renal disease (principal); I50.23 Acute on chronic systolic (congestive) heart failure; N18.6 End stage renal disease; J96.01 Acute respiratory failure with hypoxia; N17.9 Acute kidney failure, unspecified; D63.8 Anemia in other chronic diseases classified elsewhere; F32.9 Major depressive disorder, single episode, unspecified; K21.9 Gastro-esophageal reflux disease without esophagitis; K59.00 Constipation, unspecified; J10.1 Influenza due to other identified influenza virus with other respiratory manifestations; R79.89 Other specified abnormal findings of blood chemistry; D69.6 Thrombocytopenia, unspecified; Z66 Do not resuscitate; I42.9 Cardiomyopathy, unspecified; E11.21 Type 2 diabetes mellitus with diabetic nephropathy; E83.39 Other disorders of phosphorus metabolism; E03.9 Hypothyroidism, unspecified; E11.22 Type 2 diabetes mellitus with diabetic chronic kidney disease; E55.9 Vitamin D deficiency, unspecified; E78.5 Hyperlipidemia, unspecified; I25.10 Atherosclerotic heart disease of native coronary artery without angina pectoris; E78.00 Pure hypercholesterolemia, unspecified; I08.0 Rheumatic disorders of both mitral and aortic valves; I27.2 Other secondary pulmonary hypertension; I44.0 Atrioventricular block, first degree; I48.0 Paroxysmal atrial fibrillation; I25.5 Ischemic cardiomyopathy; I73.9 Peripheral vascular disease, unspecified; Z87.891 Personal history of nicotine dependence; Z91.81 History of falling; Z99.2 Dependence on renal dialysis; Z79.01 Long term (current) use of anticoagulants; Z95.1 Presence of aortocoronary bypass graft; Z79.82 Long term (current) use of aspirin; Z79.899 Other long term (current) drug therapy; Z98.890 Other specified postprocedural states; Z98.49 Cataract extraction status, unspecified eye
CPT/HCPCS: 36245; 36561; 76700; 76937; 82805; 82962; 83735; 84100; 86022; 86850; 86900; 86901; 86920; 87040; 87081; 87340; 87804; 90471; 90935; 93005; 94060; 94640; 94644; 94660; 96365; 96366; 96368; 96375; 96376; 99285; J0282; J0330; J0456; J0690; J0696; J0885; J1644; J1940; J2060; J2150; J2250; J2405; J2704; J3010; J3490; J7030; J7050; J7060; P9016

== ENCOUNTER 2016-07-04 18:31 | Emergency (ER) | payer MEDICARE ==
[~2016-07-04] VITALS: Ht 172.7 cm; Wt 68.2 kg
[~2016-07-04 18:31] MED LIST changes: -ALBU8HFA IH; +AMIO200T2 PO; +ATOR20TA65 PO; +AUD NEB; -HEPA100I3 IV; +HEPA500017 SQ; -HYDR-4173 PO; +ISOS1TAB2 PO; -LABE200T PO; +LEVO50 PO; -LORA0.5T83 PO; -NIFE90TA38 PO; -NITR0.4T27 SL; +PHOSLOC PO; +QUET200T PO; -QUET200T29 PO; -SODI325T PO; +VITAD1000 PO; -ZOLP5 PO
[2016-07-04] MEDS ORDERED: PANT40TA25 PO (19:04)
[2016-07-04] MEDS ORDERED: METO50 PO (19:04)
[2016-07-04] MEDS ORDERED: [UNRECOGNIZED DRUG - CODE] PO (19:04)
[2016-07-04] MEDS ORDERED: FOLI1CAP2 PO (19:04)
[2016-07-04 21:56] VITALS: BP 141/80
== END 2016-07-04 21:58 | disposition home or self-care (01) ==
LOC: EMS 18:33
DX: I71.9 Aortic aneurysm of unspecified site, without rupture (principal); E11.29 Type 2 diabetes mellitus with other diabetic kidney complication; N28.9 Disorder of kidney and ureter, unspecified; I10 Essential (primary) hypertension; E78.00 Pure hypercholesterolemia, unspecified; Z95.1 Presence of aortocoronary bypass graft; Z79.82 Long term (current) use of aspirin
CPT/HCPCS: 71250; 99284